=== PATIENT | female | born 1955 | race Two or more races ===

== ENCOUNTER 2021-12-15 08:23 | Day surgery (SDC) | payer OTHER ==
[~2021-12-15 08:23] MED LIST: ADULT LOW DOSE81 M1 PO; ALLERGY RELIE15.8 ML NASAL; AZELASTINE137 MCG/0. NASAL; GABAPENTIN400 MG PO; HYDROCHLOROTH12.5 MG PO; LOSARTAN POTASS50 MG PO; OXYBUTYNIN5 MG/5 ML PO; SYNTHROID50 MCG PO; ZOCOR20 MG PO
== END 2021-12-15 14:55 | disposition home or self-care (01) ==
LOC: CIR.AMB 08:23
PROVIDERS: ATTEND Orthopaedic Surgery
DX: M77.11 Lateral epicondylitis, right elbow (principal); M65.821 Other synovitis and tenosynovitis, right upper arm; Z88.8 Allergy status to other drugs, medicaments and biological substances; I10 Essential (primary) hypertension; J45.909 Unspecified asthma, uncomplicated; E03.9 Hypothyroidism, unspecified; M19.90 Unspecified osteoarthritis, unspecified site; Z20.822 Contact with and (suspected) exposure to COVID-19